=== PATIENT | male | born 1990 | race Caucasian/White ===

== ENCOUNTER 2018-09-28 12:25 | Emergency (ER) | payer OTHER ==
--- NOTE | 2018-09-28 14:05 | ED ---
Skin Complaint - HPI Summary HPI Summary: Patient's 27-year-old male who presents to the ED with left foot erythema and swelling. He states he was seen at urgent care 2 days ago after his foot impaled on an apple foreign. He states this area was painful and he wanted this checked out. X-rays were obtained which shows no foreign body. However he was not given antibiotics at that time period of the past 2 days, the foot is been worsening with erythema, warmth and swelling. No streaking of the leg. Denies any fevers, sweats, chills. He takes no medications and is otherwise healthy. He states has been ambulating, however with pain and he has been limping. - History of Current Complaint Chief Complaint: EDExtremityLower Time Seen by Provider: 09/28/18 12:54 Stated Complaint: LEFT FOOT INFECTION PER PT Hx Obtained From: Patient Onset/Duration: Started Hours Ago Skin Exposure Onset/Duration: Hours Ago Timing: Constant Onset Severity: Moderate Current Severity: Moderate Pain Intensity: 0 Pain Scale Used: 0-10 Numeric Skin Location: Foot Character: Pain, Redness, Raised, Painful Aggravating Symptom(s): Nothing Alleviating Symptom(s): Nothing Associated Signs & Symptoms: Negative Related History: Trauma - Allergy/Home Medications Allergies/Adverse Reactions: Allergies Allergy/AdvReac Type Severity Reaction Status Date / Time loracarbef Allergy Hives Verified 09/28/18 12:37 PMH/Surg Hx/FS Hx/Imm Hx Previously Healthy: Yes Endocrine/Hematology History: Denies: Hx Diabetes Cardiovascular History: Denies: Hx Hypertension GI History: Reports: Other GI Disorders - colitis History: Denies: Hx Renal Disease - Cancer History Hx Chemotherapy: No Hx Radiation Therapy: No Hx Palliative Cancer Treatment: No - Immunization History Hx Pertussis Vaccination: No Immunizations Up to Date: Yes Infectious Disease History: No Infectious Disease History: Denies: Traveled Outside the [place] in Last 30 Days - Family History Known Family History: Negative: Cardiac Disease, Hypertension, Diabetes - Social History Occupation: Unemployed Lives: With Family Alcohol Use: Rare Hx Substance Use: No Substance Use Type: Reports: None Hx Tobacco Use: No Smoking Status (MU): Never Smoked Tobacco Review of Systems Constitutional: Negative Negative: Fever, Chills, Fatigue, Skin Diaphoresis Negative: Palpitations, Chest Pain Negative: Shortness Of Breath, Cough Genitourinary: Negative Positive: no symptoms reported, hematuria Negative: Arthralgia, Myalgia Skin: Negative Positive: Other - erythema All Other Systems Reviewed And Are Negative: Yes Physical Exam Triage Information Reviewed: Yes Vital Signs On Initial Exam: Initial Vitals Temp Pulse Resp BP Pulse Ox 98.7 F 80 16 144/96 96 09/28/18 12:32 09/28/18 12:32 09/28/18 12:32 09/28/18 12:32 09/28/18 12:32 Vital Signs Reviewed: Yes Appearance: Positive: Well-Appearing, Well-Nourished Skin: Positive: Warm, Skin Color Reflects Adequate Perfusion, Other - erythema, swelling Head/Face: Positive: Normal Head/Face Inspection Eyes: Positive: EOMI, Conjunctiva Clear Neck: Positive: Supple, No Lymphadenopathy Respiratory/Lung Sounds: Positive: Clear to Auscultation, Breath Sounds Present Cardiovascular: Positive: RRR, Pulses are Symmetrical in both Upper and Lower Extremities Musculoskeletal: Positive: Strength/ROM Intact Neurological: Positive: Sensory/Motor Intact, Speech Normal Psychiatric: Positive: Affect/Mood Appropriate Diagnostics - Vital Signs Vital Signs Temp Pulse Resp BP Pulse Ox 09/28/18 12:32 98.7 F 80 16 144/96 96 - Laboratory Lab Statement: Any lab studies that have been ordered have been reviewed, and results considered in the medical decision making process. Course/Dx - Course Course Of Treatment: Patient is evaluated for left foot erythema, swelling and warmth. He stepped on a palpable foreign 2 days ago and was seen at urgent care. X-rays were performed which showed no acute process including fracture or foreign body. Since that time the area has been worsening. There is no streaking up the leg. The erythema is well demarcated to only D dorsum of the foot. Patient is able to flex and extend at the ankle. Pulses +2 intact bilaterally. He is given Keflex 4 times daily 5 days for cellulitis. He is given strict return precautions for streaking up the leg, fevers, sweats, chills. 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 - Diagnoses Provider Diagnoses: Cellulitis of foot Discharge - Sign-Out/Discharge Documenting (check all that apply): Patient Departure Patient Received Moderate/Deep Sedation with Procedure: No - Discharge Plan Condition: Stable Disposition: HOME Prescriptions: Cephalexin CAP* [Keflex CAP*] 500 mg PO QID #20 cap MDD 4 Patient Education Materials: Cellulitis (ED) Referrals: Rui Decker MD [Primary Care Provider] - Additional Instructions: Keflex four times daily x 5 days Please return to the ED for worsening/changing symptoms or streaking up the leg Elevate Ice - Billing Disposition and Condition Condition: STABLE Disposition: Home
[2018-09-28 14:07] VITALS: BP 124/66
== END 2018-09-28 14:06 | disposition home or self-care (01) ==
LOC: ED 12:25
DX: L03.116 Cellulitis of left lower limb (principal); Z88.1 Allergy status to other antibiotic agents
CPT/HCPCS: 99282

== ENCOUNTER 2018-11-09 17:53 | Emergency (ER) | payer OTHER ==
[2018-11-09] MEDS ORDERED: oxyCODONE TAB* 5 MG TAB PO ONE ×2 (18:53→20:22)
--- NOTE | 2018-11-09 18:53 | ED ---
Lower Extremity - HPI Summary HPI Summary: Patient complains of redness, swelling and pain to left foot. Patient states symptoms have been persistent since 6 weeks ago when he stepped on a thorn. Patient was initially seen at urgent care 6 weeks ago with expanding negative for foreign body. Patient was 2 days later evaluated here at the ER and placed on trial of Keflex. Patient states mild improvement, however has had persistent pain and redness. States has had purulent discharge from wound after trial of antibiotics. States sudden onset redness, swelling and whiteness of skin 2 days. Denies trauma, purulent discharge, fever, cough, sore throat, CP , SOB, N/V/D, abdominal pain, change in urine, change in BM. Denies medical history. - History of Current Complaint Chief Complaint: EDExtremityLower Stated Complaint: INFECTION LT FOOT PER PT Time Seen by Provider: 11/09/18 18:14 Hx Obtained From: Patient Mechanism Of Injury: Other Onset/Duration: Weeks Severity Initially: Moderate Severity Currently: Moderate Pain Intensity: 8 Pain Scale Used: 0-10 Numeric Timing: Constant Location: Is Discrete @ Character Of Pain: Dull, Aching, Throbbing Associated Signs And Symptoms: Positive: Swelling, Redness Aggravating Factor(s): Standing, Ambulation, Weight Bearing Alleviating Factor(s): Rest Able to Bear Weight: Yes - Allergies/Home Medications Allergies/Adverse Reactions: Allergies Allergy/AdvReac Type Severity Reaction Status Date / Time loracarbef Allergy Hives Verified 09/28/18 12:37 PMH/Surg Hx/FS Hx/Imm Hx Endocrine/Hematology History: Denies: Hx Diabetes Cardiovascular History: Denies: Hx Hypertension GI History: Reports: Other GI Disorders - colitis History: Denies: Hx Renal Disease Sensory History: Denies: Hx Legally Blind Opthamlomology History: Denies: Hx Eye Prosthesis EENT History: Denies: Hx Deafness Neurological History: Denies: Hx Dementia - Cancer History Hx Chemotherapy: No Hx Radiation Therapy: No Hx Palliative Cancer Treatment: No Infectious Disease History: No Infectious Disease History: Denies: Traveled Outside the [place] in Last 30 Days - Family History Known Family History: Negative: Cardiac Disease, Hypertension, Diabetes - Social History Alcohol Use: Occasionally Hx Substance Use: No Substance Use Type: Reports: Marijuana Hx Tobacco Use: No Smoking Status (MU): Light Every Day Tobacco Smoker Review of Systems Constitutional: Negative Eyes: Negative ENT: Negative Cardiovascular: Negative Respiratory: Negative Gastrointestinal: Negative Genitourinary: Negative Musculoskeletal: Negative Skin: Other Neurological: Negative Psychological: Normal All Other Systems Reviewed And Are Negative: Yes Physical Exam - Summary Physical Exam Summary: Small 1.5 cm x 1.5 cm apical abscess noted to dorsal surface of left foot just proximal to where between great toe and second toe. Localized erythema and swelling. Area of white skin passing from abscess distally down into abdomen between great toe and second toe. PMS intact distally. I&D produced no purulent discharge. Triage Information Reviewed: Yes Vital Signs On Initial Exam: Initial Vitals Temp Pulse Resp BP Pulse Ox 99 F 112 18 137/105 98 11/09/18 17:56 11/09/18 17:56 11/09/18 17:56 11/09/18 17:56 11/09/18 17:56 Vital Signs Reviewed: Yes Appearance: Positive: Well-Appearing Skin: Positive: Warm Head/Face: Positive: Normal Head/Face Inspection Eyes: Positive: Normal Neck: Positive: Supple Respiratory/Lung Sounds: Positive: Clear to Auscultation Cardiovascular: Positive: Normal Abdomen Description: Positive: Nontender Musculoskeletal: Positive: Normal Neurological: Positive: Normal Psychiatric: Positive: Normal AVPU Assessment: Alert - [place] Coma Scale Best Eye Response: 4 - Spontaneous Best Motor Response: 6 - Obeys Commands Best Verbal Response: 5 - Oriented Coma Scale Total: 15 Diagnostics - Vital Signs Vital Signs Temp Pulse Resp BP Pulse Ox 11/09/18 17:56 99 F 112 18 137/105 98 - Laboratory Result Diagrams: 11/09/18 21:29 Lab Statement: Any lab studies that have been ordered have been reviewed, and results considered in the medical decision making process. Lower Extremity Course/Dx - Course Course Of Treatment: Patient complains of redness, swelling and pain to left foot. Patient states symptoms have been persistent since 6 weeks ago when he stepped on a thorn. Patient was initially seen at urgent care 6 weeks ago with expanding negative for foreign body. Patient was 2 days later evaluated here at the ER and placed on trial of Keflex. Patient states mild improvement, however has had persistent pain and redness. States has had purulent discharge from wound after trial of antibiotics. States sudden onset redness, swelling and whiteness of skin 2 days. Denies trauma, purulent discharge, fever, cough , sore throat, CP, SOB, N/V/D, abdominal pain, change in urine, change in BM. Denies medical history. Vital signs within normal limits. CMP normal. Ultrasound negative for foreign body, states possible small abscess. CT left foot negative for foreign body, positive for 2 small lesions. Discussed patient 's symptoms with Dr. Tanner, attending, who suggested possible Sporotrichosis, and recommended initiating treatment. Rx for Itraconazole 200 mg daily while cultures pending. - Diagnoses Provider Diagnoses: Left foot infection Discharge - Sign-Out/Discharge Documenting (check all that apply): Patient Departure Patient Received Moderate/Deep Sedation with Procedure: No - Discharge Plan Condition: Stable Disposition: HOME Prescriptions: Itraconazole 200 mg PO DAILY 20 Days #10 capsule Sulfamethox/Trimethoprim DS* [Bactrim DS 800/160 TAB*] 1 tab PO BID #20 tab Patient Education Materials: Wound Infection (ED), Sporotrichosis (ED) Referrals: Rui Decker MD [Primary Care Provider] - Greg CARRANZA,Dylon Ann [Medical Doctor] - Additional Instructions: Take Itraconazole daily as directed. Cultures from wound are pending and you will be notified when results are back. You may then be advised to follow-up with Infectious Disease Doctor Teofilo. Return to the ED for any new or worsening symptoms. - Billing Disposition and Condition Condition: STABLE Disposition: Home - Attestation Statements Provider Attestation: I was available for consult. This patient was seen by the JOON. The patient was not presented to, seen by, or examined by me. Bebeto Bautista MD
[2018-11-09] MEDS ORDERED: Nicotine PATCH 7 MG/24 HR* PATCH TRANSDERM ONE (21:10)
[2018-11-09 21:50] LABS: Albumin 4.5 g/dL (3.2-5.2); BUN/Creatinine Ratio 13.8 (8-20); Calcium 9.9 mg/dL (8.6-10.3); EGFR African American 126.4 (>60); EGFR Non-African American 104.5 (>60); Globulin 2.3 g/dL (2-4); Potassium 3.7 mmol/L (3.5-5.0); Total Bilirubin 0.4 mg/dL (0.2-1.0); Total Protein 6.8 g/dL (6.4-8.9)
[2018-11-09] MEDS ORDERED: Iohexol 300* (CONTRAST) 10 ML SDV IV ONE (22:30)
[2018-11-10] MEDS ORDERED: Bacitracin OINTMENT* 0.5% 0.5 oz TUBE TOPICAL ONE (00:29)
[2018-11-10 00:47] VITALS: BP 125/74
--- NOTE | 2018-11-10 06:04 | PN ---
Progress Note - Progress Note Date of Service: 11/10/18 Note: wound preliminary positive for MRSA. sent script for bactrim ds bid x10 days. unable to leave . letter sent.
== END 2018-11-10 00:46 | disposition home or self-care (01) ==
LOC: ED 17:53
DX: L08.9 Local infection of the skin and subcutaneous tissue, unspecified (principal); L02.612 Cutaneous abscess of left foot; Z88.1 Allergy status to other antibiotic agents; F17.210 Nicotine dependence, cigarettes, uncomplicated
CPT/HCPCS: 10060; 36415; 80053; 87070; 87077; 87102; 87186; 87205; 87640; 87641; 99283; A9270-GY; Q9967